=== PATIENT | female | born 1985 | race Caucasian/White ===

== ENCOUNTER 2023-03-08 01:40 | Emergency (ER) | payer MEDICAID ==
[~2023-03-08] VITALS: Ht 172.7 cm; Wt 122.8 kg
[~2023-03-08 01:40] MED LIST: LANS30CA37 PO; NORCO10T PO; ZOF4T PO
[2023-03-08 02:24] VITALS: TEMP 97.8
[2023-03-08] MEDS ORDERED: ipratropium/albuterol 3ml nebule NEB ONE (02:50)
[2023-03-08 03:02] VITALS: PULSE 67; RESP 18; O2SAT 97
[2023-03-08 03:10] VITALS: PULSE 71; RESP 18; O2SAT 98
[2023-03-08] MEDS ORDERED: PRED20TA PO (03:45)
[2023-03-08] MEDS ORDERED: AZIT-164 PO (03:45)
[2023-03-08] MEDS ORDERED: predniSONE 20 mg tablet PO ONE (03:45)
[2023-03-08] MEDS ORDERED: BECL10.6 INH (03:45)
[2023-03-08 04:04] VITALS: BP 126/81; PULSE 77; RESP 16; O2SAT 97
== END 2023-03-08 04:05 | disposition home or self-care (01) ==
LOC: ER 01:41
DX: J18.9 Pneumonia, unspecified organism (principal); J45.909 Unspecified asthma, uncomplicated; F17.200 Nicotine dependence, unspecified, uncomplicated
CPT/HCPCS: 71046; 94640; 99283; J7512; 51702; 94760

== ENCOUNTER 2024-05-26 21:22 | Emergency (ER) | payer MEDICAID ==
[~2024-05-26] VITALS: Ht 172.7 cm; Wt 142.7 kg
[~2024-05-26 21:22] MED LIST changes: +BECL10.6 INH
[2024-05-26 21:29] VITALS: TEMP 97.6
[2024-05-26 22:08] LABS: BASOPHILS # (AUTO) 0.1 X10'3 (0-0.2); BASOPHILS % (AUTO) 0.7 % (0-1); EOSINOPHILS # (AUTO) 0.3 X10'3 (0-0.9); EOSINOPHILS % (AUTO) 3.2 % (0-6); HEMATOCRIT 37.9 % (35.0-45.0); HEMOGLOBIN 13.2 g/dl (12.0-16.0); LYMPHOCYTES # (AUTO) 3.2 X10'3 (1.1-4.8); LYMPHOCYTES % (AUTO) 34.6 % (21-51); MEAN CORPUSCULAR HEMOGLOBIN 31.4 PG (27.0-31.0); MEAN CORPUSCULAR HGB CONC 34.9 g/dL (33.0-36.5); MEAN CORPUSCULAR VOLUME 89.8 FL (78-98); MEAN PLATELET VOLUME 7.1 FL (7.4-10.4); MONOCYTES # (AUTO) 0.5 X10'3 (0-0.9); MONOCYTES % (AUTO) 5.9 % (2-12); NEUTROPHILS # (AUTO) 5.2 X10'3 (1.8-7.7); NEUTROPHILS % (AUTO) 55.6 % (42-75); PLATELET COUNT 266 X10'3 (140-440); RED BLOOD COUNT 4.22 X10'6 (4.20-5.60); WHITE BLOOD COUNT 9.3 X10'3 (4.5-11.0)
[2024-05-26 22:16] LABS: ALANINE AMINOTRANSFERASE 33 U/L (12-78); ALBUMIN 3.4 G/DL (3.4-5.0); ALBUMIN/GLOBULIN RATIO 0.9 (1.1-1.5); ALKALINE PHOSPHATASE 78 IU/L (46-116); ANION GAP 6 (8-16); ASPARTATE AMINO TRANSFERASE 17 U/L (10-37); BILIRUBIN,TOTAL 0.5 MG/DL (0.1-1.0); BLOOD UREA NITROGEN 11 MG/DL (7-18); BUN/CREATININE RATIO 14.9 (10.0-20.0); CALCIUM 8.5 MG/DL (8.5-10.1); CHLORIDE 102 MMOL/L (99-107); CREATININE 0.74 MG/DL (0.40-0.90); GLUCOSE 113 MG/DL (70-104); POTASSIUM 3.7 MMOL/L (3.5-5.1); SODIUM 137 MMOL/L (135-145); TOTAL PROTEIN 7.1 G/DL (6.4-8.2); eCRCL 104 ML/MIN; eGFR 88 ML/MIN
[2024-05-26 22:24] LABS: PRO BRAIN NATRIURETIC PEPTIDE 72 PG/ML (0-125)
[2024-05-26] MEDS: ipratropium/albuterol 3ml nebule NEB ONE (22:27)
[2024-05-26 22:28] VITALS: PULSE 70; RESP 15
[2024-05-26 22:38] VITALS: PULSE 75; RESP 13; O2SAT 99
[2024-05-26] MEDS: triamcinolone acetonide 40mg/ml inj IM ONE (22:41)
[2024-05-26] MEDS: acetaminophen 325mg tablet PO ONE (22:41)
[2024-05-26] MEDS: ketorolac trometh 15mg/ml vial 15 MG/ML ML IM ONE (22:42)
[2024-05-26] MEDS: prednisone 10mg tablet PO ONE (23:11)
[2024-05-26] MEDS ORDERED: PRED20TA PO (23:47)
[2024-05-26 23:54] VITALS: BP 126/78; PULSE 70; RESP 13; O2SAT 97
[2024-05-27] MEDS ORDERED: prednisone 10mg tablet PO SCH (08:30)
== END 2024-05-26 23:55 | disposition home or self-care (01) ==
LOC: ER 21:23
DX: J45.901 Unspecified asthma with (acute) exacerbation (principal); M94.0 Chondrocostal junction syndrome [Tietze]; Z88.5 Allergy status to narcotic agent; Z88.8 Allergy status to other drugs, medicaments and biological substances; Z87.891 Personal history of nicotine dependence; Z20.822 Contact with and (suspected) exposure to COVID-19
CPT/HCPCS: 36415; 71045; 80053; 83880; 84484; 85025; 87502; 87503; 87811; 93005; 94640; 96372; 99285; J1885; J3301; J7512; 94760

== ENCOUNTER 2025-03-12 13:24 | Emergency (ER) | payer MEDICAID ==
[~2025-03-12] VITALS: Ht 172.7 cm; Wt 138.6 kg
[2025-03-12 13:28] VITALS: BP 132/78; PULSE 80; O2SAT 98
--- NOTE | 2025-03-12 14:10 | Physician Documentation ---
History of Present Illness ~ Chief Complaint: Neck pain Stated Complaint: FALL NECK PAIN Time Seen by MD: 13:56 Primary Medical Doctor: DR MARLOW [facility] HPI Patient is a 40-year-old female that presents to the emergency department for evaluation of neck and back pain after falling off of an electrical box last night while wrestling with a friend. Patient reports that she felt back off of the box falling approximately 3 ft directly onto her back and neck. Patient reports that her neck has been very tender since that time she is unable to turn her neck to the left she can turn it to the right point tenderness at the C- spine point tenderness the T-spine soft tissue and muscle tenderness throughout. Patient denies taking any medication to help with pain. Patient reports that she is diabetic and takes Ozempic. Medication Reconciliation Allergies: Coded Allergies: No Known Allergies (Unverified , 03/12/25) Scheduled Beclomethasone Dipropionate (Qvar Redihaler), 2 PUFFS INH Q12H Lansoprazole (Prevacid), 30 MG PO DAILY, (Reported) Scheduled PRN Hydrocodone Bit/Acetaminophen 10/325 MG* ([place] 10/325 MG*), 1 TAB PO Q4H PRN Ondansetron ODT* (Zofran ODT*), 4 MG PO Q6H PRN Past Medical History Past Medical History: Asthma Past Surgical History: noncontributory Alcohol Use: Other Drug Use: other Review of Systems ROS As stated above in the HPI, otherwise all systems are reviewed and negative. Physical Exam Vital Signs: Temperature: 97.6, Source: Temporal, Heart Rate: 80, Respiratory Rate: 18, BP: 132/78, Pulse Oximetry: 98, Weight: 138.600 Progress Results/Orders Results/Orders Orders - BROOKE GUSMAN Xray Exam Entire Spine 1view (03/12/25 14:16) Ankle, Complete(3vw Min) (03/12/25 14:47) Cervical Spine Ltd (03/12/25 14:57) Lumbar Spine Limited (03/12/25 14:57) Thoracic Spine Litd (03/12/25 14:57) Completed Orders - BROOKE GUSMAN Ketorolac Trometh 15mg/Ml Vial (Toradol (03/12/25 14:20) Acetaminophen 325mg Tablet (Tylenol Tabl (03/12/25 14:20) Ketorolac Trometh 30mg/Ml Vial (Toradol (03/12/25 14:35) Ankle, Complete(3vw Min) (03/12/25 14:47) Cervical Spine Ltd (03/12/25 14:57) Lumbar Spine Limited (03/12/25 14:57) Thoracic Spine Litd (03/12/25 14:57) Medications Received in ER Medications (Trade) Dose Ordered Sig/Tara Route PRN Reason Start Time Stop Time Status Last Admin Dose Admin (Toradol injection) 30 mg ONCE ONCE IM 03/12/25 14:20 03/12/25 14:21 DC 03/12/25 14:29 30 MG (Tylenol tablet) 650 mg ONCE ONCE PO 03/12/25 14:20 03/12/25 14:21 DC 03/12/25 14:28 650 MG Vital Signs 03/12/25 03/12/25 13:28 14:29 Temp 97.6 Pulse 80 Resp 18 16 B/P (MAP) 132/78 Pulse Ox 98 Medical Decision Making Findings Patient presents with neck and back pain post fall yesterday. Given history, exam and workup patient likely has soft tissue injury and bruising. I have low suspicion for fracture, dislocation, significant ligamentous injury, septic arthritis, gout flare, new autoimmune arthropathy, or gonococcal arthropathy. Imaging or CT and L-spine were negative, he and lateral negative, right ankle x- ray negative. We will follow up with the primary care provider. Patient will return to the emergency department if she has any worsening or recurrent symptoms or any additional concerning symptoms i.e. significant pain swelling na usea vomiting headache numbness tingling or any other concerning symptoms we discussed here today. Differential Dx:Considerations: Include: Cervical muscle spasm, Discitis, DJD, Meningitis, Thyroiditis, Torticollis, Vertebral artery dissect., Other Departure Impression: Primary Impression: Neck pain Additional Impression: Strain of neck muscle Condition: Stable Discharge Instructions: Ankle Sprain, [id number], Cervical Sprain Referrals: NO PRIMARY CARE PROVIDER (PCP) Prescriptions Cyclobenzaprine* (Cyclobenzaprine*) 10 Mg Tablet 1 TAB PO TID for 3 Days, #9 TAB Prov: BROOKE GUSMAN 03/12/25 Education Educated: Patient Educated regarding: diagnosis, need for follow up Signature Scribe Signature: A Attestation: Scribed for Brooke Gusman by VANNESSA Smith . 03/12/25 15:59 BROOEK GUSMAN Mar 12, 2025 14:10
[2025-03-12 14:29] VITALS: RESP 16
[2025-03-12] MEDS: ketorolac trometh 15mg/ml vial 15 MG/ML ML IM ONE (14:29)
[2025-03-12] MEDS ORDERED: ketorolac trometh 30MG/ML vial 30 MG/ML VIAL IM ONE (14:35)
--- NOTE | 2025-03-12 15:30 | RADIOLOGY REPORT ---
[facility] INDICATION: Pain, fall, point tenderness COMPARISON: None TECHNIQUE: 3 views of the cervical spine were obtained. FINDINGS: The cervical vertebral alignment is normal. The predental space is normal. The intervertebral disc spaces are well-maintained. No significant facet arthropathy is noted. No acute fracture, vertebral compression deformity or aggressive osseous lesions. The imaged lung apices are unremarkable. IMPRESSION: No acute fracture.
--- NOTE | 2025-03-12 15:32 | RADIOLOGY REPORT ---
[facility] INDICATION: Pain, fall, point tenderness COMPARISON: DI CHEST,SINGLE VIEW on DOS: 05/26/24 TECHNIQUE:2 views of the thoracic spine were obtained. FINDINGS: The thoracic vertebral alignment is normal. The intervertebral disc spaces are well-maintained. No significant facet arthropathy is noted. No acute fracture, vertebral compression deformity or aggressive osseous lesions. The imaged thorax and abdomen are grossly unremarkable. IMPRESSION: No acute fracture.
--- NOTE | 2025-03-12 15:32 | RADIOLOGY REPORT ---
CLINICAL INDICATION: pain, edema TECHNIQUE: 3 radiographic views of the right ankle were obtained. Comparison: None FINDINGS/IMPRESSION: There is no evidence of acute fracture or dislocation. The visualized joint space is well maintained. The alignment is anatomical. There is no radiopaque foreign body.
--- NOTE | 2025-03-12 15:33 | RADIOLOGY REPORT ---
CLINICAL INDICATION: Pain, fall, point tenderness TECHNIQUE: 2 radiographic views of the lumbar spine were obtained. Comparison: None FINDINGS/IMPRESSION: 5 [id number] lumbar-type vertebrae. Mild straightening of the lumbar lordosis. Vertebral body heights are maintained. No evidence of acute traumatic fractures or spondylolisthesis. [id number] te degenerative changes at L4-L5. Moderate amount of fecal material within the visualized colon. Status post cholecystectomy.
[2025-03-12] MEDS ORDERED: CYCL-1 PO (15:59)
[2025-03-12 16:08] VITALS: TEMP 97.6
== END 2025-03-12 16:09 | disposition home or self-care (01) ==
LOC: ER 13:24
DX: S16.1XXA Strain of muscle, fascia and tendon at neck level, initial encounter (principal); J45.909 Unspecified asthma, uncomplicated; E11.9 Type 2 diabetes mellitus without complications; Z79.899 Other long term (current) drug therapy; W03.XXXA Other fall on same level due to collision with another person, initial encounter; Y93.72 Activity, wrestling; Y92.89 Other specified places as the place of occurrence of the external cause; Y99.8 Other external cause status
CPT/HCPCS: 72040; 72070; 72100; 73610; 96372; 99284; J1885